=== PATIENT | female | born 1960 | race Two or more races ===

== ENCOUNTER → 2020-09-09 | Outpatient (CLI) | payer OTHER ==
--- NOTE | 2020-09-09 10:06 | RAD ---
EXAM: Abdomen sonogram. HISTORY: Palpable lump. TECHNIQUE: Sonographic imaging of the abdomen was performed. COMPARISON: None. FINDINGS: There is no suspicious sonographic finding within the ventral abdominal wall overlying the right lower quadrant and adnexa. No mass, fluid collection, lymphadenopathy or hernia is seen. IMPRESSION: Unremarkable sonographic imaging of the ventral abdominal wall at site of palpable concer n. Cross-sectional imaging can be performed if this concern for a sonographically occult lesion. Electronically signed by: Gabriella Bhatti MD (09/09/2020 10:03 AM) [id number]
== END ==
LOC: US 08:29
PROVIDERS: ATTEND Family Medicine
DX: R19.07 Generalized intra-abdominal and pelvic swelling, mass and lump (principal)
CPT/HCPCS: 76705